=== PATIENT | female | born 1965 | race Caucasian/White ===

== ENCOUNTER 2017-04-23 09:05 | Emergency (ER) | payer BC ==
[2017-04-23 09:21] VITALS: BP 136/69
--- NOTE | 2017-04-23 09:53 | UC ---
Throat Pain/Nasal Atul HPI - HPI Summary HPI Summary: Pt presents with c/o of nasal congestion, cough, generalized malaise, sore throat and sinus pressure. - History of Current Complaint Chief Complaint: UCRespiratory Stated Complaint: SINUS COUGH Time Seen by Provider: 04/23/17 09:33 Hx Obtained From: Patient ?: No Onset/Duration: Gradual Onset, Lasting Days - 7, Worse Since - sent Severity: Mild Cough: Productive - yellow Associated Signs & Symptoms: Positive: Sinus Discomfort - Allergies/Home Medications Allergies/Adverse Reactions: Allergies Allergy/AdvReac Type Severity Reaction Status Date / Time Penicillins Allergy Hives Verified 04/23/17 09:14 PMH/Surg Hx/FS Hx/Imm Hx Previously Healthy: Yes - Surgical History Surgical History: None - Family History Known Family History: Positive: Cardiac Disease - Social History Alcohol Use: Occasionally Substance Use Type: None Smoking Status (MU): Never Smoked Tobacco - Immunization History Most Recent Influenza Vaccination: 2012 Review of Systems Constitutional: Fever - last night, Chills, Fatigue Skin: Negative Eyes: Negative ENT: Sore Throat, Sinus Congestion, Sinus Pain/Tenderness Respiratory: Cough Cardiovascular: Negative Gastrointestinal: Negative Genitourinary: Negative Motor: Negative Neurovascular: Negative Musculoskeletal: Negative Neurological: Negative Psychological: Negative All Other Systems Reviewed And Are Negative: Yes Physical Exam Triage Information Reviewed: Yes Appearance: Ill-Appearing Vital Signs: Initial Vital Signs Temp 99.4 F 04/23/17 09:16 Pulse 93 04/23/17 09:16 Resp 16 04/23/17 09:16 BP 136/69 04/23/17 09:16 Pulse Ox 100 04/23/17 09:16 Vital Signs Reviewed: Yes ENT Exam: Other ENT: Positive: Nasal congestion, Other: - maxillary sinus tenderness Neck exam: Normal Respiratory Exam: Normal Cardiovascular Exam: Normal Musculoskeletal Exam: Normal Neurological Exam: Normal Psychological Exam: Normal Skin Exam: Normal Throat Pain/Nasal Course/Dx - Differential Dx/Diagnosis Differential Diagnosis/HQI/PQRI: Sinusitis, URI Provider Diagnoses: sinusitis. cough Discharge - Discharge Plan Condition: Stable Disposition: HOME Prescriptions: Azithromycin TAB* [Zithromax TAB (Z-OBED) 250 mg #6 tabs] 2 tab PO .TODAY, THEN 1 DAILY #1 obed Benzonatate CAP* [Tessalon 100 MG CAP*] 100 mg PO TID PRN #30 cap PRN Reason: Cough Fexofenadine-Pseudoephedrine [Veronica-D 24 Hour Allergy] 1 tab PO DAILY #10 tab Patient Education Materials: Sinusitis (ED), Acute Cough (ED) Referrals: Svitlana Dalton MD [Primary Care Provider] - If Needed
== END 2017-04-23 10:06 | disposition home or self-care (01) ==
LOC: UCCORT 09:05
DX: J32.9 Chronic sinusitis, unspecified (principal)
CPT/HCPCS: 99212; G0463